=== PATIENT | male | born 1960 | race Caucasian/White ===

== ENCOUNTER 2018-02-24 10:44 | Outpatient (CLI) | payer OTHER ==
[~2018-02-24 10:44] MED LIST: HYZAAR 100-251 UDTAB; LANTUS100 U/ML SQ; LANTUS100 U/ML SUBCUTANEO
== END 2018-02-24 17:00 | disposition home or self-care (01) ==
LOC: RAD 10:44
DX: M79.674 Pain in right toe(s) (principal); L03.031 Cellulitis of right toe

== ENCOUNTER 2018-05-12 14:31 | Outpatient (CLI) | payer OTHER | END 2018-05-12 15:39 | disposition home or self-care (01) | LOC: RAD 14:31 | DX: L03.031 Cellulitis of right toe (principal); M79.674 Pain in right toe(s) ==